=== PATIENT | male | born 2000 | race Two or more races ===

== ENCOUNTER 2021-06-03 23:57 | Emergency (ER) | payer OTHER, SELFPAY ==
[2021-06-03 23:58] VITALS: BP 121/91; PULSE 75; RESP 15; TEMP 37; O2SAT 98; BMI 21.4
[2021-06-04] MEDS: Azithromycin 250 MG Tablet 1000 MG PO (00:41)
--- NOTE | 2021-06-04 00:41 | EX.ED.GUMALE ---
HPI History of Present Illness Chief Complaint: Complaint Detail of Chief Complaint: Penile discharge Informant: patient Pain Onset: Yesterday Appearance Lesion(s): No Related History Sexually: Active Unprotected Sex: Yes Narrative Narrative: Patient presents for evaluation secondary to penile discharge. He states yesterday morning he got up and had discharge. He had mild aching sensation when he would urinate. No lesions. He does admit to unprotected intercourse. No history of STDs. PFSH PFS Medical History no medical history no medical history Home Medications NK 06/04/21 [History Last Taken Unknown] Allergy/AdvReac Type Severity Reaction Status Date / Time No Known Allergies Allergy Verified 06/03/21 23:58 Social History Smoking Status: Current every day smoker tobacco type: cigarettes ROS ROS ED Constitutional Constitutional ED: Denies chills or fever(s) Eyes Eyes: Denies change in vision ENT ENT ED: Denies sore throat Cardiovascular Cardiovascular: Denies chest pain Respiratory/Chest Respiratory/Chest: Denies cough or dyspnea Gastrointestinal Gastrointestinal: Denies abdominal pain, diarrhea, nausea or vomiting Genitourinary Genitourinary ED: Reports other Details: Discharge ; Denies dysuria Musculoskeletal Musculoskeletal: Denies back pain Integumentary Denies rash Neurologic Neurologic: Denies headache(s) or weakness Allergic/Immunologic Allergic/Immunologic ED: Denies urticaria EXAM Physical Exam Const Vital Signs: 06/03/21 23:58 Temperature 98.6 F Temperature Source Temporal Pulse Rate 75 Respiratory Rate 15 Blood Pressure 121/91 H Blood Pressure Mean 101 Pulse Ox 98 Oxygen Delivery Method Room Air Positive well nourished and well developed General Appearance ED: well developed HEENT normocephalic Neck supple Resp normal respiratory effort and clear to auscultation bilaterally Cardio regular rate and regular rhythm GI non-tender and non-distended Palpation: soft Penis: normal penis, uncircumcised and other No lesions or discharge noted at this time. No testicular tenderness. Extremity normal to inspection Neuro oriented x3 Sensorium / Orientation: alert Psych mental status grossly normal Skin Rashes: no rashes MDM MDM MDM Narrative Medical decision making narrative: Urine will be sent for GC chlamydia testing. With patient having known unprotected intercourse and discharge she will be treated with Rocephin and Zithromax. He was advised that he will be notified of his test is positive so he can ensure clearance of his infection and notify any partners with any treated. Discharge Plan Triage Chief Complaint: Complaint ED Provider: [facility] Dx/Rx/DC Orders Clinical Impression: Encounter for assessment of STD exposure Instructions: ED STI Male Treated Prescriptions: No Action NK RF: 0 Primary Care Provider: [facility] Doctor,Out of Referrals: [facility] Doctor,Out of [Primary Care Provider] - Disposition Disposition: Home, Self Care
[2021-06-04] MEDS: Ceftriaxone 500 MG Vial 250 MG IM (00:50)
[2021-06-04 01:14] VITALS: BP 121/91; PULSE 75; RESP 15; O2SAT 98
[2021-06-04 02:25] LABS: Chlamydia Trachomatis by PCR Negative (Negative); Neisserai gonorrhoeae by PCR Positive (Negative); Probe Check PASS
== END 2021-06-04 01:17 | disposition home or self-care (01) ==
LOC: ED 06-04 00:52
PROVIDERS: Emergency Provider Emergency Medicine
DX: Z20.2 Contact with and (suspected) exposure to infections with a predominantly sexual mode of transmission (principal); F17.210 Nicotine dependence, cigarettes, uncomplicated
CPT/HCPCS: 87491; 87591; 96372; 99283